=== PATIENT | male | born 1990 | race Two or more races ===

== ENCOUNTER 2024-08-28 19:18 | Emergency (ER) | payer MEDICAID, SELFPAY ==
[2024-08-28 19:47] VITALS: BP 128/70; PULSE 89; RESP 18; TEMP 36.6; O2SAT 99
--- NOTE | 2024-08-28 19:56 | XR_ITS ---
Examination: Hand, left 3 views Technique: Hand AP, oblique, lateral 3 views Date and time of exam: August 28, 20242026 hrs. Indications: Puncture injury palm side of the hand today Findings: No acute fracture No dislocation No opaque foreign body Impression: No opaque foreign body
--- NOTE | 2024-08-28 19:57 | PD.EDHAND ---
Upper Extremity Injury RME/HPI General Chief Complaint: Hand/Wrist Problems Stated Complaint: PUNCTURE WOUNT TO LEFT PALM OF HAND Time Seen by Provider: 08/28/24 19:21 Source: patient, RN notes reviewed and old records reviewed Arrival date/time: 08/28/24 19:18 Mode of arrival: ambulatory Limitations: no limitations RME / HPI RME / HPI narrative: 34yom presents to ED for hand injury that occurred at work today. Patient reports a drill bit went through his left palm, obtained puncture wound. No limited ROM or numbness/tingling reported. 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 Related Data Previous Rx's ?Medication ?Instructions ?Recorded meloxicam 7.5 mg tablet 7.5 mg PO BID #45 tabs 06/08/23 ibuprofen 600 mg tablet 600 mg PO Q6H PRN pain #30 tabs 08/28/24 Allergies Allergy/AdvReac Type Severity Reaction Status Date / Time No Known Allergies Allergy Verified 08/28/24 19:21 Review of Systems Review of Systems Systems Reviewed: All systems reviewed, normal except as documented Musculoskeletal Musculoskeletal: Denies limited range of motion, Denies numbness and Denies tingling Comments: Reports hand pain Integumentary/Breasts Comments: Reports puncture wound Neurologic Neurologic: Denies numbness and Denies tingling Past Medical History Social History SMOKING STATUS: Current some day smoker SUBSTANCE USE: marijuana ALCOHOL: Never Past Medical History Comments PMH COMMENT: denies pmhx ED Exam General Limitations: Present no limitations General appearance: Present alert and in no apparent distress Head Head exam: Present atraumatic and normocephalic Eye Eye exam: Present normal appearance, PERRL and EOMI ENT ENT exam: Present normal exam and mucous membranes moist Neck Neck exam: Present normal inspection and full ROM Chest Chest inspection: Present normal inspection and symmetric chest wall rise Respiratory Respiratory exam: Present normal lung sounds bilaterally; Absent respiratory distress Cardiovascular Cardiovascular exam: Present regular rate and normal rhythm Extremities Exam Extremities exam: Present full ROM, normal capillary refill and other (Puncture wound left palm.); Absent joint swelling Neurological Exam Neurological exam: Present alert and oriented X3 Psychiatric Psychiatric exam: Present normal affect and normal mood Skin Skin exam: Present warm, dry and other (Puncture wound left palm, does not go through dorsal hand. No active bleeding.) Course Quality Measures none Orders Category Date Time Status XR hand comp LT min 3V Stat Exams 08/28/24 19:56 Completed Ibuprofen Tab [Motrin Tab] Med 08/28/24 19:56 Discontinued 600 mg PO X1 ONE Tet,Diphth,Pertuss(Acell)-Tdap [Boostrix Vacc] Med 08/28/24 19:56 Discontinued 0.5 ml IMI .ONCE ONE Vital Signs Vital signs: Vital Signs Temperature 98 F 08/28/24 19:47 Pulse Rate 89 08/28/24 19:47 Respiratory Rate 18 08/28/24 19:47 Blood Pressure 128/70 08/28/24 19:47 Pulse Oximetry (%) 99 08/28/24 19:47 Oxygen Delivery Method Room Air 08/28/24 19:47 Extremity Injury MDM Narrative MDM Narrative:: 34yom presents to ED for hand injury that occurred at work today. Patient reports a drill bit went through his left palm, obtained puncture wound. No limited ROM or numbness/tingling reported. 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 X-rays negative. Patient is neurovascularly intact. Wound cleansed and irrigated in ED, bacitracin and bandage applied. Home wound care discussed. Tetanus vaccine updated. Stable for discharge, RTED precautions given. Patient data External records reviewed:: [facility] previous records ( ED visit for alcohol intoxication) Clinical information provided by:: patient and friend Social determinants that could affect healthcare access:: other (specify) (Poor access to healthcare, acculturation difficulty) Patient has the following chronic illnesses:: None How is presenting disease/condition affected by chronic disease/condition?: no chronic disease Evaluation data The following diagnostics were reviewed and interpreted by me:: other (specify) (None) Lab and/or radiology exams considered but not ordered:: None Interpretation Summary: Hand x-rays: No fracture or foreign body per my read Medications / Prescriptions Medications or Prescriptions considered but not ordered:: No antibiotics recommended at this time Medication administrations:: Medication Administration History Discontinued Medications Diphtheria/Tetanus/Acell Pertussis (Diphth,Pertuss(Acell),Tet Vac 0.5 Ml Vial) 0.5 ml IMi .ONCE ONE Stop: 08/28/24 19:57 Last Admin: 08/28/24 20:19 Dose: 0.5 ml Documented By: BARON Ibuprofen (Ibuprofen Tab 600 Mg Tablet) 600 mg PO X1 ONE Stop: 08/28/24 19:57 Last Admin: 08/28/24 20:18 Dose: 600 mg Documented By: CB Above medications administered in the ED Consultations Consultation(s) initiated? (list below): No Diagnosis Upper Extremity Injury Differential Diagnosis: other (Puncture wound, laceration, avulsion, abrasion, fracture, foreign body) Most likely diagnosis given after review of the tests above:: Puncture wound Admission Indicated Admission indicated?: not indicated Admission Request Was there a request for admission?: No Disposition Plan Disposition Plan: Discharge Discharge Attestation Discharge Attestation: The patient and all family members were given an opportunity to ask questions and understood the discharge instructions. Discharge instructions specifically effects, indications for sooner follow up or return to the emergency department, and the expected course of current diagnosis. Patient condition: Stable Discharge Plan Plan Patient Disposition: HOME (Self Care) Patient condition on transfer: Stable Prescriptions/Referrals Prescriptions/Med Rec: New ibuprofen 600 mg tablet 600 mg PO Q6H PRN (Reason: pain) Qty: 30 0RF No Action meloxicam 7.5 mg tablet 7.5 mg PO BID Qty: 45 3RF Problem List Clinical Impression: Puncture wound of left hand Patient/Caregiver Discharge Instructions Education Materials: ED Puncture Wound (General) Print Language: Amharic MANDO/HERNAN Supervising Physician MANDO/HERNAN Supervising Physician: Av
[2024-08-28] MEDS: IBUPROFEN TAB 600 MG TABLET PO (20:18)
[2024-08-28] MEDS: DIPHTH,PERTUSS(ACELL),TET VAC 0.5 ML VIAL IMi (20:19)
== END 2024-08-28 22:20 | disposition home or self-care (01) ==
PROVIDERS: Emergency Provider Emergency Medicine
DX: S61.432A Puncture wound without foreign body of left hand, initial encounter (principal); W27.8XXA Contact with other nonpowered hand tool, initial encounter; Y99.0 Civilian activity done for income or pay; Z23 Encounter for immunization
CPT/HCPCS: 73130; 90471; 90715; 99283; A9270

== ENCOUNTER → 2025-01-23 | Outpatient (CLI) | payer MEDICAID, SELFPAY ==
--- NOTE | 2025-01-23 15:45 | XR_ITS ---
Examination: MRI right lower leg, without intravenous contrast. MRI right lower leg , with intravenous contrast. Exam date and time: January 23, 2025 1624 hours INDICATIONS: Lower leg pain proximal tibia 2 months, diagnosis actinomycetoma worsening pain Technique: Multiple axial, sagittal and coronal images of the right lower leg have been obtained with the Siemens high-resolution 1.5 Madeline MRI scanner. Images obtained included T2 weighted fat suppressed sagittal sections, TR 3500, TE 46, T2 weighted coronal fat suppressed images, TR 3050, TE 84, T2-weighted transverse fat suppressed images, TR 30-60, TE 63, proton density transverse images, TR 4720, TE 46, and T1 weighted coronal images, TR 560, TE 13. Axial, sagittal and coronal images are obtained post intravenous injection of 13 cc gadolinium. Findings: Abnormal signal on the precontrast images involving the proximal tibia to the mid shaft of the tibia again noted Signal deficit in the proximal tibia 37 mm Postcontrast images demonstrate enhancement of the proximal tibia but soft tissue surrounding enhancement is less prominent compared to the prior study There is a large signal defect in the cortex of the tibia on the medial side proximally which may be postsurgical, recommend plain films for correlation IMPRESSION: No significant change in abnormal signal involving the proximal tibia extending from the metaphyseal region to the mid shaft of the tibia Abnormal enhancement is less prominent in the tibial shaft compared to the August 01, 2023 exam as well as no soft tissue enhancement surrounding the proximal tibia Plain films of the tibia-fibula would be highly useful for correlation
== END | disposition home or self-care (01) ==
LOC: SMRI 15:36
PROVIDERS: PCP Family Medicine; Referring Provider Internal Medicine Infectious Disease; Visit Provider Internal Medicine Infectious Disease
DX: B47.1 Actinomycetoma (principal)
CPT/HCPCS: 73720; A9579